=== PATIENT | female | born 1975 | race Two or more races ===

== ENCOUNTER → 2018-02-17 | Outpatient (CLI) | payer BC ==
[~2018-02-17] MED LIST: AMO500 PO; HYDR-2966 PO; HYDR25CA13 PO; IBU800 PO; IPRA3AMP36 IH; LISI5TAB25 PO; LOR1 PO; NO ROUTINE MEDS; PER PO; PRE20 PO; VEN75XR PO; [UNRECOGNIZED DRUG - CODE] PO
--- NOTE | 2018-02-17 15:07 | RADIOLOGY IMAGING REPORT ---
FACILITY: [facility] [place] PATIENT NAME: Erik Owusu : 1975 MR: [id number] V: [id number] EXAM DATE: ORDERING PHYSICIAN: CHAS VILLAFANA TECHNOLOGIST: Location: [facility] [place] Patient: Erik Owusu : 1975 Visit/Account:[id number] Date of Sevice: 02/17/2018 LUMBAR SPINE COMP W/FLEX/EXT HISTORY: Shooting pain down the legs, two years COMPARISON: CT examination of the abdomen and pelvis June 2016 FINDINGS: There are five lumbar-type vertebra. Frontal, bilateral oblique, neutral and flexion and extension i mages are sent. Neutral imaging demonstrates anatomic alignment without fracture or acute destructive osseous process . Mild spondylotic narrowing is noted throughout. Minimal endplate spurring and subtle increased sc lerosis is seen at the level of L3-L4. Bilateral oblique images demonstrate no significant facet art hrosis. Flexion and extension images demonstrate no evidence of hypermobility. IMPRESSION: Mild multilevel spondylotic changes most notable at L3-L4. No acute osseous finding or evidence of h ypermobility. Report Dictated By: Lex Hawley MD at 02/17/2018 3:00 PM Report E-Signed By: Lex Hawley MD at 02/17/2018 3:03 PM WSN:[id number]
== END ==
LOC: RAD 11:04
PROVIDERS: ATTEND Chiropractor
DX: M47.817 Spondylosis without myelopathy or radiculopathy, lumbosacral region (principal)
CPT/HCPCS: 72114

== ENCOUNTER → 2018-03-31 | Outpatient (CLI) | payer BC ==
--- NOTE | 2018-03-31 12:08 | RADIOLOGY IMAGING REPORT ---
FACILITY: PATIENT NAME: Erik Owusu : 1975 MR: [id number] V: [id number] EXAM DATE: ORDERING PHYSICIAN: CHAS VILLAFANA TECHNOLOGIST: Location: [facility] Patient: Erik Owusu : 1975 Visit/Account:[id number] Date of Sevice: 03/31/2018 L SPINE W/O CONTRAST COMPARISON: None Additional pertinent history: Low back pain Technique: Multiplanar multisequence lumbar spine MRI was performed without gadolinium enhancement. FINDINGS: Vertebral body heights and alignment: Negative. Vertebral marrow signal: Negative. Distal thoracic cord and conus: Negative. The conus ends at T12-L1. Surrounding soft tissues: Negative. Inspection of the disc spaces reveal the following: L5-S1: Negative. L4-L5: Minimal circumferential disc bulging with no canal or neural foraminal narrowing. L3-L4: Minimal circumferential disc bulging with no canal or neural foraminal narrowing. L2-L3: Negative. L1-L2: Negative. T12-L1: Negative. IMPRESSION: 1. Mild spondylitic change involving the lower lumbar spine. 2. No significant canal or neural foraminal narrowing. Report Dictated By: Francisco Irving MD at 03/31/2018 11:48 AM Report E-Signed By: Francisco Irving MD at 03/31/2018 12:03 PM WSN:[id number]
== END ==
LOC: MRI 01:29
PROVIDERS: ATTEND Chiropractor
DX: M51.26 Other intervertebral disc displacement, lumbar region (principal)
CPT/HCPCS: 72148